=== PATIENT | male | born 1950 | race Caucasian/White ===

== ENCOUNTER → 2016-07-06 | Outpatient (CLI) | payer OTHER ==
--- NOTE | 2016-07-19 13:01 | CODING QUERY MEDICAL NECESSITY ---
CQSUPPORTING DIAGNOSIS NEEDED A supporting diagnosis is required for the test/procedure performed on this patient in order for us to be reimbursed by the patient's insurance. Please provide a supporting diagnosis for the following test/procedure listed below next to the test name along with your signature. *If there is no additional diagnosis for this patient that would support the following test/procedure please document that below next to the test/procedure. Test(s)/Procedure(s) that require a supporting diagnosis: DOS 07/06/16 VITAMIN B12 Provider Signature: Date: Thank you Marilee Tse [employer] Once completed, please kindly fax back to [phone] For questions please call [phone]
== END | disposition home or self-care (01) ==
LOC: C.LABMFLN 12:05
PROVIDERS: ATTEND Psychiatry & Neurology Neurology
DX: R32 Unspecified urinary incontinence (principal); R41.3 Other amnesia

== ENCOUNTER → 2017-07-22 | Outpatient (CLI) | payer OTHER ==
--- NOTE | 2017-07-22 11:30 | DIAGNOSTIC IMAGING REPORT ---
CHEST 2 VIEWS ROUTINE CLINICAL HISTORY: 67 years-old Male presenting with J44.9 Chronic obstructive pulmonary disease, unspecified. TECHNIQUE: PA and lateral views of the chest were obtained. COMPARISON: 08/01/2015. FINDINGS: Atherosclerosis of the aortic arch. Cardiac silhouette normal in size. Heterogeneity of lung parenchyma. Pleural thickening is suggested along the right lateral lung. No focal opacity. No large effusion or pneumothorax. Osseous structures normal. Upper abdomen normal. IMPRESSION: 1. Right pleural thickening is of uncertain etiology. Further evaluation with CT chest to be considered if clinically appropriate. 2. Findings suggest emphysema. No focal infiltrate to suggest pneumonia. Electronically signed by: Juan Magana M.D. 07/22/2017 11:29 AM Dictated Date/Time: 07/22/2017 11:27 AM
== END | disposition home or self-care (01) ==
LOC: C.RAD1850 11:17
PROVIDERS: ATTEND Physician Assistant
DX: J44.9 Chronic obstructive pulmonary disease, unspecified (principal)

== ENCOUNTER → 2017-07-28 | Outpatient (CLI) | payer OTHER ==
--- NOTE | 2017-07-28 11:55 | DIAGNOSTIC IMAGING REPORT ---
(CHEST) THORAX WITHOUT CLINICAL HISTORY: Abnormal chest x-ray PLEURAL THICKENING COMPARISON STUDY: Chest x-ray dated 07/22/2017 CT DOSE: 632.68 mGycm TECHNIQUE: CT of the thorax was performed from the thoracic inlet to the lung bases. Images are reviewed in the axial, sagittal, and coronal planes. IV contrast was not administered for this examination. A dose lowering technique was utilized adhering to the principles of ALARA. FINDINGS: Thyroid: Imaged portions of the thyroid gland are normal in appearance. Thoracic aorta: The thoracic aorta is normal in course and caliber, noting standard 3 vessel arch anatomy. Heart: The heart is normal in size and configuration, without pericardial effusion. Lungs and pleural spaces: There are no pleural effusions. There are dependent atelectatic changes. There is pulmonary emphysema. The right-sided pleural thickening described on the prior chest x-ray is felt to be secondary to extrapleural fat. This is a benign finding. Evaluation of the lung parenchyma is slightly limited due to respiratory motion artifact. Mediastinum: There are minimally enlarged mediastinal lymph nodes. Yesenia: There is no evidence of pathologic hilar adenopathy given the limitations of a noncontrast study. Axilla: There is no evidence of pathologic axillary lymphadenopathy Upper abdomen: Partially visualized upper abdominal viscera is within normal limits. Skeletal structures: There are no lytic or blastic osseous lesions. IMPRESSION: 1. Prominent extrapleural fat which explains the right-sided pleural thickening described on the recent chest x-ray 2. Minimally enlarged mediastinal lymph nodes 3. No suspicious pulmonary masses. Evaluation is slightly compromised due to respiratory motion artifact Electronically signed by: Jacek Gomez M.D. 07/28/2017 11:54 AM Dictated Date/Time: 07/28/2017 11:49 AM
== END | disposition home or self-care (01) ==
LOC: C.CTS 11:08
PROVIDERS: ATTEND Physician Assistant
DX: R93.8 Abnormal findings on diagnostic imaging of other specified body structures (principal)